=== PATIENT | female | born 1995 | race Two or more races ===

== ENCOUNTER 2017-09-11 08:15 | Inpatient (IN) | payer OTHER ==
[2017-09-11 09:24] VITALS: BMI 29.8
[2017-09-11 10:03] LABS: BASO % 0.6 % (0-2.0); EOS % 0.6 % (0-4.5); HEMATOCRIT 36.3 % (32.4-45.2); HEMOGLOBIN 11.5 GM/dL (10.7-15.3); LYMPH % 26.9 % (8-40); MCH 27.5 pg (25.7-33.7); MCHC 31.6 g/dl (32.0-36.0); MEAN CELL VOLUME 86.8 fl (80-96); MEAN PLT VOLUME 9.5 fl (7.5-11.1); MONO % 5.9 % (3.8-10.2); PLATELET COUNT 206 K/MM3 (134-434); RBC 4.18 M/mm3 (3.60-5.2); RDW 18.6 % (11.6-15.6)
[2017-09-11 10:16] LABS: INR 0.95 (0.82-1.09); PROTHROMBIN TIME (PATIENT) 10.7 SEC (9.98-11.88)
[2017-09-11 10:19] LABS: ACTIVATED PTT 25.2 SECONDS (26.9-34.4)
[2017-09-11] MEDS ORDERED: TUBERCULIN PPD 5 TU/0.1ML SYRINGE (IN PATIENT USE ONLY) ID ONE ×2 (10:30→15:15)
[2017-09-11 10:39] LABS: ANION GAP 7 (8-16); BLOOD UREA NITROGEN 10 mg/dL (7-18); CALCIUM 8.2 mg/dL (8.5-10.1); CHLORIDE 110 mmol/L (98-107); CO2 23 mmol/L (21-32); CREATININE 0.5 mg/dL (0.55-1.02); GLUCOSE,RANDOM 84 mg/dL (74-106); POTASSIUM 4.5 mmol/L (3.5-5.1); SODIUM 140 mmol/L (136-145)
[2017-09-11] MEDS ORDERED: BUTORPHANOL TARTRATE 1 MG/ML VIAL IVPB ONE (13:47)
[2017-09-11] MEDS ORDERED: PROMETHAZINE HCL 25 MG/1 ML VIAL IVPUSH ONE (13:47)
--- NOTE | 2017-09-11 13:47 | HP ---
Past Medical History - Primary Care Physician PCP:: Rach Warren - Admission Chief Complaint: Induction of labor at 41.2 week History of Present Illness: 22 yo EDC EGA week admitted for induction of labor due to post dates no Azev[place], Vagina bleeding or abd pain History Source: Patient Limitations to Obtaining History: No Limitations - Past Medical History ...: 1 ...Para: 0 ...Term: 0 ...: 0 ...Spon : 0 ...Induced : 0 ...Multiple Gestation: 0 ...LMP: 11/29/16 ... Weeks Gestation by Dates: 40.6 ...EDC by Dates: 09/05/17 ...EDC by Sono: 09/02/17 - Past Surgical History Past Surgical History: Yes: None Hx Myomectomy: No Hx Transabdominal Cerclage: No - Smoking History Smoking history: Never smoked Have you smoked in the past 12 months: No - Alcohol/Substance Use Hx Alcohol Use: No History of Substance Use: reports: None - Social History Usual Living Arrangement: Yes: With Spouse History of Recent Travel: No Home Medications - Allergies Allergies/Adverse Reactions: Allergies Allergy/AdvReac Type Severity Reaction Status Date / Time No Known Allergies Allergy Verified 09/11/17 09:00 - Home Medications Home Medications: Ambulatory Orders Vit Calc,Iron,Folic [ Vitamins] 1 each PO DAILY 09/11/17 Review of Systems - Review of Systems Constitutional: reports: No Symptoms Eyes: reports: No Symptoms HENT: reports: No Symptoms Neck: reports: No Symptoms Cardiovascular: reports: No Symptoms Respiratory: reports: No Symptoms Gastrointestinal: reports: No Symptoms Genitourinary: reports: No Symptoms Breasts: reports: No Symptoms Reported Musculoskeletal: reports: No Symptoms Integumentary: reports: No Symptoms Neurological: reports: No Symptoms Endocrine: reports: No Symptoms Hematology/Lymphatic: reports: No Symptoms Psychiatric: reports: No Symptoms Physical Exam - Maternity Vital Signs: Vital Signs Temperature 98.2 F 09/11/17 10:00 Pulse Rate 61 09/11/17 12:00 Respiratory Rate 09/11/17 12:00 Blood Pressure 131/69 09/11/17 12:00 O2 Sat by Pulse Oximetry (%) Constitutional: Yes: Well Nourished, No Distress Cardiovascular: Yes: WNL Lungs: Clear to auscultation - Abdominal Exam/OB Fundal Height: 41 Number of Fetuses: Single Presentation: Vertex Contractions: No Category: I Decelerations: None - Vaginal Exam/OB Vaginal Bleediing: No Dilatation (cm): 2 Effacement (%): 90 Amniotic Membrane Status: Intact Presentation: Vertex/Position Station: +1 - Physical Exam Extremities: Yes: WNL Edema: No - Labs Lab Results: CBC, BMP 09/11/17 09:50 09/11/17 09:50 Hemorrhage Risk Assessment - Risk Factors Risk Score: 0 Risk Level: Low Risk Problem List - Problems (1) Post-dates Code(s): O48.0 - POST-TERM Qualifiers: Post-term type: 40-42 weeks gestation Qualified Code(s): O48.0 - Post-term Assessment/Plan IUP at 41.2 weeks induction of labor Primigravida Cat 1 Postdates good lantigua score Plan admit cervidil
[2017-09-11] MEDS ORDERED: DINOPROSTONE 10 MG VAGINAL SUPPOSITORY VG ONE (13:48)
[2017-09-11] MEDS: ELECTROLYTE-148 SOLN 1,000 ML IV SCH ×2 (14:50→22:00)
[2017-09-11] MEDS ORDERED: OXYTOCIN 30 UNITS in 0.9% NS 30 UNIT/500 ML INFUS.BAG IVPB ONE (21:29)
--- NOTE | 2017-09-11 21:44 | PN ---
Ante-Partal Exam - Subjective Vital Signs: Vital Signs Temperature 98.1 F 09/11/17 18:00 Pulse Rate 73 09/11/17 20:00 Respiratory Rate 19 09/11/17 20:00 Blood Pressure 121/61 09/11/17 20:00 O2 Sat by Pulse Oximetry (%) Bleeding: No Headache: No Visual changes: No Right upper quadrant pain: No - Contractions Contractions: Yes Regularity: Irregular Intensity: Mild Monitor Mode: External - Exam during Labor Heart Rate: 140 Variability: Moderate Category: I Monitor Accelerations: Present Monitor Decelerations: None Exam: Vaginal Dilatation (cm): 1-2 cm Effacement (%): 100 Amniotic Membrane Status: Intact Amniotic Fluid: Clear Presentation: Vertex Station: +2 - Assessment/Plan Assessment/Plan: good lantigua score Postdates 1-2 cm 90 vtx Cat 1 Primigravida Plan Pitocin augmentation' stadol if need smeds advised epidurl pt undecided
[2017-09-11] MEDS ORDERED: OXYTOCIN 15 UNITS/ LR 250 ML 250 ML IVPB SCH (21:45)
[2017-09-11] MEDS: OXYTOCIN 30 UNITS in 0.9% NS 30 UNIT/500 ML INFUS.BAG IVPB SCH (22:00)
[2017-09-12] MEDS: ELECTROLYTE-148 SOLN 1,000 ML IV SCH ×3 (03:49→16:53)
--- NOTE | 2017-09-12 03:53 | PN ---
Ante-Partal Exam - Subjective Subjective: Pt on 6 mu pitocin comfortable Vital Signs: Vital Signs Temperature 97.6 F 09/12/17 02:00 Pulse Rate 62 09/12/17 02:00 Respiratory Rate 18 09/12/17 02:00 Blood Pressure 115/52 09/12/17 02:00 O2 Sat by Pulse Oximetry (%) Bleeding: No Headache: No Visual changes: No Right upper quadrant pain: No - Contractions Contractions: Yes Regularity: Regular Intensity: Mild/Mod Monitor Mode: External - Exam during Labor Category: I Monitor Decelerations: None Exam: Vaginal Dilatation (cm): 2 cm Effacement (%): 90 Amniotic Membrane Status: Intact Presentation: Vertex Station: +2 - Intrapartum Hemorrhage Risk Risk Score: 0 Risk Level: Low Risk
--- NOTE | 2017-09-12 03:55 | PN ---
Ante-Partal Exam - Subjective Subjective: Pt got up to bathroom and had a variable decel Vital Signs: Vital Signs Temperature 97.6 F 09/12/17 02:00 Pulse Rate 62 09/12/17 02:00 Respiratory Rate 18 09/12/17 02:00 Blood Pressure 115/52 09/12/17 02:00 O2 Sat by Pulse Oximetry (%) Bleeding: No Headache: No Visual changes: No Right upper quadrant pain: No - Contractions Contractions: Yes Regularity: Regular Intensity: Mild/Mod - Exam during Labor Category: II Monitor Decelerations: Variable - Assessment/Plan Assessment/Plan: Variable decel Cat 2 Plan DC pitocin
--- NOTE | 2017-09-12 03:57 | PN ---
Progress Note (short form) - Note Progress Note: EFM Cat 1 Will resume pitocin Problem List - Problems (1) Post-dates Code(s): O48.0 - POST-TERM
--- NOTE | 2017-09-12 07:05 | PN ---
Ante-Partal Exam - Subjective Subjective: Pt feeeling more pain does not desire epidural no rom no FERGUSON mild spottinf Vital Signs: Vital Signs Temperature 98.6 F 09/12/17 04:00 Pulse Rate 66 09/12/17 06:15 Respiratory Rate 18 09/12/17 06:15 Blood Pressure 100/49 09/12/17 06:15 O2 Sat by Pulse Oximetry (%) - Contractions Contractions: Yes Regularity: Regular Intensity: Mild/Mod Monitor Mode: External - Exam during Labor Heart Rate: 140 Variability: Moderate Category: I Monitor Accelerations: Present Monitor Decelerations: None Exam: Vaginal Dilatation (cm): 2 Effacement (%): 90 Amniotic Membrane Status: Ruptured Presentation: Vertex Station: +2 - Intrapartum Hemorrhage Risk Risk Score: 0 Risk Level: Low Risk - Assessment/Plan Assessment/Plan: Prodromal labor iup at 41 weeks srom Cat 1 post dates Plan continue pitocin stadol if needs
[2017-09-12] MEDS ORDERED: BUTORPHANOL TARTRATE 1 MG/ML VIAL ONE ×2 (09:26)
[2017-09-12] MEDS ORDERED: PROMETHAZINE HCL 25 MG/1 ML VIAL ONE (09:26)
[2017-09-12] MEDS ORDERED: FENTANYL/BUPIVACAINE/NS/PF - PCEA - 50 ML DISP.SYRIN EP ONE (14:21)
[2017-09-12] MEDS ORDERED: FENTANYL/BUPIVACAINE/NS/PF - PCEA - 50 ML DISP.SYRIN EP SCH (14:30)
[2017-09-12] MEDS ORDERED: NALOXONE HCL 0.4 MG/ML VIAL IVPUSH PRN (15:40)
--- NOTE | 2017-09-12 15:48 | PN ---
Ante-Partal Exam - Subjective Subjective: Pt sp epidural due to pain Vital Signs: Vital Signs Temperature 99.1 F 09/12/17 15:00 Pulse Rate 74 09/12/17 15:00 Respiratory Rate 20 09/12/17 15:00 Blood Pressure 123/63 09/12/17 15:00 O2 Sat by Pulse Oximetry (%) 98 09/12/17 15:00 Bleeding: Yes (spotting) Bleeding Description: Mild Headache: No Visual changes: No Right upper quadrant pain: No - Contractions Contractions: Yes Regularity: Regular Intensity: Mild/Mod Monitor Mode: External - Exam during Labor Heart Rate: 140 Variability: Moderate Heart Rate Location: [facility] Category: I Monitor Accelerations: Present Monitor Decelerations: None Exam: Vaginal Dilatation (cm): 4 Effacement (%): 90 Amniotic Membrane Status: Ruptured Amniotic Fluid: Clear Presentation: Vertex Station: +1 - Intrapartum Hemorrhage Risk Risk Score: 0 Risk Level: Low Risk - Assessment/Plan Assessment/Plan: Active labor at 41 weeks Cat 1 S/P Epidural Plan Continue pitocin
[2017-09-12] MEDS ORDERED: ceFAZolin SODIUM 1 GM VIAL ONE (18:21)
--- NOTE | 2017-09-12 18:43 | PN ---
Ante-Partal Exam - Subjective Subjective: Pt doing well with epidural Vital Signs: Vital Signs Temperature 99.8 F H 09/12/17 18:00 Pulse Rate 76 09/12/17 18:30 Respiratory Rate 20 09/12/17 18:30 Blood Pressure 130/82 09/12/17 18:30 O2 Sat by Pulse Oximetry (%) 100 09/12/17 18:30 Bleeding: Yes Bleeding Description: Mild Headache: No Visual changes: No Right upper quadrant pain: No - Contractions Contractions: Yes Regularity: Regular Monitor Mode: External - Exam during Labor Category: I Monitor Decelerations: None Exam: Vaginal Dilatation (cm): 8 cm Effacement (%): 90 Amniotic Membrane Status: Ruptured Amniotic Fluid: Clear Presentation: Vertex - Intrapartum Hemorrhage Risk Risk Score: 0 Risk Level: Low Risk - Assessment/Plan Assessment/Plan: Low grade temp Cat 1 Active labor Post dates anticipate vaginal delivery Plan Anticipate vaginal delivery
[2017-09-12] MEDS ORDERED: OXYTOCIN 20 UNITS in 0.9% NS 20 UNIT/1,000 ML INFUS.BAG IV ONE (19:49)
[2017-09-12] MEDS ORDERED: LIDOCAINE HCL 1% PRESERVATIVE FREE - 30ML VIAL ONE (19:49)
[2017-09-12] MEDS: OXYTOCIN 30 UNITS in 0.9% NS 30 UNIT/500 ML INFUS.BAG IVPB SCH (21:45)
[2017-09-12] MEDS: OXYTOCIN 20 UNITS in 0.9% NS 20 UNIT/1,000 ML INFUS.BAG IV SCH (21:48)
[2017-09-12] MEDS ORDERED: ACETAMINOPHEN INJECTION 100 ML IVPB ONE (22:01)
--- NOTE | 2017-09-12 22:17 | PROC ---
Obstetrical Vaccum Device - Doc. Following Use of Vaccum Device Indications for use: NRFHR, Maternal Exhaustion Risks and Benefits Explained: Yes Consent on Chart: Yes Dilation (0-10): 10 Station: 2 Molding: No Position: OA Caput: No Proper placement of cup confirmed: No Number of pulls: 1 Number of pop-offs: 0 Duration of time cup on head (min): 30 Reduction of pressure between contractions: Yes Appearance of head on delivery: Normal Bag Grader present during vacuum extraction: Yes Bag Grader & nursery staff notified of vacuum extraction: Yes
[2017-09-12 22:18] LABS: ARTERIAL BLOOD GAS BASE EXCESS -5.8 meq/l (-2-2); ARTERIAL BLOOD GAS PCO2 42.8 mmHg (35-45); ARTERIAL BLOOD GAS pH 7.29 (7.35-7.45)
[2017-09-12 22:20] LABS: ARTERIAL BLOOD GAS PO2 17.5 mmHg (80-100)
[2017-09-12 22:21] LABS: ARTERIAL BLD GAS O2 SATURATION 28.7 % (90-98.9); VENOUS PC02 39.4 mmHg (38-52); VENOUS PH 7.3 (7.32-7.42)
--- NOTE | 2017-09-12 22:21 | PN ---
Delivery - Delivery Vaginal Delivery: Vacuum Assist Type of Anesthesia: Local, Epidural Episiotomy/Laceration: Right Mediolateral (closed with 2-0 chroic suture) EBL (cc): 1,000 (Post hemorrhage 1000 from vagina. Neonatology in room will admit due to chorio) Delivery, Single - Stages of Labor Placenta: Yes: Spontaneous - Condition of B2B Sales Executive/Handbag Designer Present: Yes Gender: Female Position: OA - [place] Feeding Plan Initial Plan: Exclusive throughout hospitalization
[2017-09-12 22:22] LABS: VENOUS PO2 20.5 mmHg (28-48)
[2017-09-12] MEDS ORDERED: BENZOCAINE 20% 57 GM BOTTLE TP PRN (22:22)
[2017-09-12] MEDS ORDERED: METHYLERGONOVINE MALEATE 0.2 MG/1 ML AMP IM PRN (22:22)
[2017-09-12] MEDS ORDERED: WITCH HAZEL 50% (TUCKS) 40 PAD/JAR PAD TP PRN (22:22)
[2017-09-12] MEDS ORDERED: BISACODYL 10 MG SUPP.RECT RC PRN (22:22)
[2017-09-12] MEDS ORDERED: BENZOCAINE 28 GM HEMORRHOIDAL OINTMENT PR PRN (22:22)
[2017-09-13] MEDS ORDERED: ceFAZolin SODIUM 1 GM VIAL ONE (00:24)
[2017-09-13] MEDS ORDERED: ACETAMINOPHEN 1000 MG/100 ML VIAL (NON FORMULARY) IVPB ONE (01:00)
[2017-09-13] MEDS: CEFAZOLIN 1 GM PUSH 1 GM/10 ML DISP.SYRIN IVPUSH SCH ×3 (01:57→17:18)
[2017-09-13] MEDS ORDERED: CEFAZOLIN 1 GM in DEXTROSE 5%-WATER - 50 ML IVPB SCH (02:00)
[2017-09-13] MEDS ORDERED: IBUPROFEN 600 MG TABLET (FP) PO ONE (02:23)
[2017-09-13] MEDS ORDERED: ACETAMINOPHEN 325 MG TABLET (FP) ONE (02:23)
[2017-09-13] MEDS ORDERED: OXYTOCIN 20 UNITS in 0.9% NS 20 UNIT/1,000 ML INFUS.BAG IV ONE (02:29)
[2017-09-13] MEDS: IBUPROFEN 600 MG TABLET (FP) PO PRN ×2 (02:30→17:14)
[2017-09-13] MEDS: ACETAMINOPHEN 325 MG TABLET (FP) PO PRN ×2 (02:30→17:15)
[2017-09-13] MEDS: OXYTOCIN 20 UNITS in 0.9% NS 20 UNIT/1,000 ML INFUS.BAG IV SCH (08:10)
[2017-09-13 08:20] LABS: BASO % 0.2 % (0-2.0); HEMATOCRIT 25.7 % (32.4-45.2); HEMOGLOBIN 8.3 GM/dL (10.7-15.3); LYMPH % 12.8 % (8-40); MCH 27.9 pg (25.7-33.7); MCHC 32.2 g/dl (32.0-36.0); MEAN CELL VOLUME 86.5 fl (80-96); MEAN PLT VOLUME 9.5 fl (7.5-11.1); MONO % 5.7 % (3.8-10.2); NEUT % 81.3 % (42.8-82.8); PLATELET COUNT 148 K/MM3 (134-434); RBC 2.97 M/mm3 (3.60-5.2); WHITE BLOOD COUNT 15.9 K/mm3 (4.0-10.0)
--- NOTE | 2017-09-13 09:53 | PN ---
Post Progress Note - Subjective Subjective: 22 yo Para 1 status post vacuum delivery, seen and evaluated. She c/o swollen perineum. Post Day: 1 Type of Delivery: Vacuum Assist Vag Del Vital Signs: Vital Signs Temperature 98.5 F 09/13/17 08:00 Pulse Rate 83 09/13/17 08:00 Respiratory Rate 20 09/13/17 08:00 Blood Pressure 122/83 09/13/17 08:00 O2 Sat by Pulse Oximetry (%) 100 09/12/17 18:45 Breast Exam: Yes: Soft Uterus: Yes: Fundus Firm Abdomen/GI: Yes: Abdomen soft, Tolerating PO Lochia: Yes: Rubra Lochia, amount: Heavy Extremities: Yes: Calves non-tender Perineum: Yes: Laceration Activity: Other (She's lying in bed) - Labs Labs: CBC WBC 15.9 K/mm3 (4.0-10.0) H D 09/13/17 07:30 RBC 2.97 M/mm3 (3.60-5.2) L D 09/13/17 07:30 Hgb 8.3 GM/dL (10.7-15.3) L D 09/13/17 07:30 Hct 25.7 % (32.4-45.2) L D 09/13/17 07:30 MCV 86.5 fl (80-96) 09/13/17 07:30 MCH 27.9 pg (25.7-33.7) 09/13/17 07:30 MCHC 32.2 g/dl (32.0-36.0) 09/13/17 07:30 RDW 17.0 % (11.6-15.6) H 09/13/17 07:30 Plt Count 148 K/MM3 (134-434) D 09/13/17 07:30 MPV 9.5 fl (7.5-11.1) 09/13/17 07:30 Neutrophils % 81.3 % (42.8-82.8) D 09/13/17 07:30 Lymphocytes % 12.8 % (8-40) D 09/13/17 07:30 Monocytes % 5.7 % (3.8-10.2) 09/13/17 07:30 Eosinophils % 0.0 % (0-4.5) D 09/13/17 07:30 Basophils % 0.2 % (0-2.0) 09/13/17 07:30 Problem List - Problems (1) Status post vacuum-assisted vaginal delivery Code(s): Z87.42 - PERSONAL HISTORY OF OTH DISEASES OF THE FEMALE GENITAL TRACT Assessment/Plan Status post vacuum assisted delivery Status post blood transfusion Ice pack to perineum Continue observation
[2017-09-14] MEDS: CEFAZOLIN 1 GM PUSH 1 GM/10 ML DISP.SYRIN IVPUSH SCH ×2 (02:01→09:20)
[2017-09-14] MEDS ORDERED: DIPHTH,PERTUSS(ACELL),TET 0.5 ML DISP.SYRIN IM ONE (10:00)
[2017-09-14 10:37] VITALS: BP 131/65; PULSE 71; TEMP 98.3
--- NOTE | 2017-09-16 10:54 | DS ---
Physical Exam-PASSENGER VESSEL CHEF Vital Signs: Vital Signs Temperature 98.3 F 09/14/17 08:10 Pulse Rate 71 09/14/17 08:10 Respiratory Rate 20 09/14/17 08:10 Blood Pressure 131/65 09/14/17 08:10 O2 Sat by Pulse Oximetry (%) 100 09/12/17 18:45 Constitutional: Yes: Well Nourished, No Distress Cardiovascular: Yes: WNL, Regular Rate and Rhythm Respiratory: Yes: WNL, Regular Gastrointestinal: Yes: WNL ....Post : Yes: Uterus firm, Uterus non-tender Neurological: Yes: WNL, Alert, Oriented Labs: CBC, BMP 09/13/17 07:30 09/11/17 09:50 Delivery - Delivery Vaginal Delivery: Vacuum Assist Type of Anesthesia: Local, Epidural Episiotomy/Laceration: Right Mediolateral (closed with 2-0 chroic suture) EBL (cc): 1,000 (Post hemorrhage 1000 from vagina. Neonatology in room will admit due to chorio) Delivery, Single - Stages of Labor Date 1st Stage Initiatied: 09/12/17 Time 1st Stage Initiated: 09:35 Date 2nd Stage Initiated: 09/12/17 Time 2nd Stage Initiated: 21:30 Date of Delivery: 09/12/17 Time of Delivery: 21:46 Time Placenta Delivered: 21:48 Placenta: Yes: Spontaneous - Condition of Salesforce Administrator/Technical Data Analyst Present: Yes Name: Donaldo Cuadra Infant Gender: Female Weight: 7 lb 7 oz Position: OA Total Hours ROM (Hrs/Mins): 14h53m - 1 Minute Total Score: 9 5 Minutes Total Score: 9 - Feeding Plan Initial Plan: Exclusive throughout hospitalization Discharge Summary Reason For Visit: LABOR INDUCTION Condition: Good - Instructions Diet, Activity, Other Instructions: Dr. Rach Warren Lumber Scaler discharge instructions Physical activity Resume your normal everyday activity as tolerated no heavy lifting or exercise until seen by your surgeon. You may walk unlimited inderjit of and climb stairs. You may resume driving the car when you feel safe and comfortable behind the wheel. No sexual activity as instructed by Dr. Warren. Wound care If you have a bandage, leave it on, and keep dry for 48-72 hours. After that time discard the outer bandage. If they are tapes on the skin under the out of bandage leave them in place. They will peel off in the next 7 to 10 days. Do Not Peel them off. You may shower the day after surgery. If there are tapes present on the skin, you may shower over them. Diet There are no dietary restrictions. Eat healthy, high-fiber foods. Drink 6 to 8 glasses of liquid each day. This will assist in keeping your bowels are regular. Pain management You may take Tylenol or acetaminophen or Ibuprofen (for example, Motrin, Advil etc.) from my pain prescription medication is ordered should be taken as prescribed for moderate to severe pain. Call Dr. Warren for any of the following: Severe pain not relieved by medication Fever of 101 or higher Excessive bleeding or drainage on dressing Inability to urinate Call the office at [phone] for an appointment in seven days. Disposition: HOME - Home Medications Comprehensive Discharge Medication List: Ambulatory Orders Vit Calc,Iron,Folic [ Vitamins] 1 each PO DAILY 09/11/17 Ibuprofen [Motrin -] 600 mg PO QID #28 tablet 09/13/17
== END 2017-09-14 12:45 | disposition home or self-care (01) | DRG 560 ==
LOC: JLDR 08:15 → J3W 09-13 03:00
PROVIDERS: ADMIT Obstetrics & Gynecology; ATTEND Obstetrics & Gynecology
PROC: 10D07Z6 Extraction of Products of Conception, Vacuum, Via Natural or Artificial Opening (ICD-10-PCS; principal; 2017-09-12)
PROC: 0W8NXZZ Division of Female Perineum, External Approach (ICD-10-PCS; 2017-09-12)
PROC: 30233H1 Transfusion of Nonautologous Whole Blood into Peripheral Vein, Percutaneous Approach (ICD-10-PCS; 2017-09-12)
DX: O48.0 Post-term pregnancy (principal); O76 Abnormality in fetal heart rate and rhythm complicating labor and delivery; O75.81 Maternal exhaustion complicating labor and delivery; Z3A.41 41 weeks gestation of pregnancy; Z37.0 Single live birth
CPT/HCPCS: 36415; 36430; 36600; 59409; 71046-TC-FY; 80048; 82803; 85025; 85610; 85730; 86593; 86850; 86900; 86901; 86922; 90715; P9038; P9058